=== PATIENT | male | born 1990 | race Caucasian/White ===

== ENCOUNTER 2025-06-23 18:42 | Emergency (ER) | payer BC, SELFPAY ==
[2025-06-23 18:48] VITALS: BP 147/98; PULSE 77; RESP 18; TEMP 36.7; O2SAT 95; BMI 36.6
--- NOTE | 2025-06-23 19:32 | XR_ITS ---
Examination: Cervical spine 4 views Technique: AP, lateral, swimmer's lateral, coned AP odontoid cervical spine 4 views Date and time: June 23, 2025 1944 hrs. Indications: Ground-level fall today with into the neck, neck pain. Findings: Adequate alignment cervical vertebral bodies. No cervical fracture. Intact odontoid Impression: No cervical fracture visualized.
--- NOTE | 2025-06-23 19:32 | PD.EDHEAD ---
ED Head Injury RME/HPI General Chief complaint: Head Injury Stated complaint: HEAD INJURY ON SATURDAY Time Seen by Provider: 06/23/25 18:53 Arrival date/time: 06/23/25 18:42 34-year-old male reports with complaints of neck pain and feeling dizzy for several days. Patient states 3 days ago a box fell onto his head but he was wearing a helmet he did not feel the impact in his head but he felt pain in his neck 2 days later. He denies any loss of consciousness dizziness blurry vision ringing in ear shortness of breath chest pain numbness tingling decreased range of motion or weakness in the limbs. Patient states that he has not taken any medications for pain Limitations: no limitations Related Data Previous Rx's ?Medication ?Instructions ?Recorded tramadol 50 mg tablet 50 mg PO BID PRN pain #15 tabs 06/23/25 Allergies Allergy/AdvReac Type Severity Reaction Status Date / Time Penicillins Allergy Rash Verified 06/23/25 18:50 Review of Systems Constitutional Constitutional: Denies headache(s) Eyes Eyes: Denies blind spots and Denies blurry vision ENT Ears, Nose, Mouth, and Throat: Denies dizziness, Denies otalgia, Denies epistaxis, Denies headache(s) and Reports neck pain Cardiovascular Cardiovascular: Denies chest pain, Denies dyspnea and Denies syncope Respiratory Respiratory: Denies dyspnea Gastrointestinal Gastrointestinal: Denies nausea and Denies vomiting Musculoskeletal Musculoskeletal: Reports neck pain and Denies stiffness Integumentary/Breasts Skin/Breast: Denies unusual bruising and Denies wounds Neurologic Neurologic: Denies behavioral changes, Denies confusion, Denies dizziness, Denies headache(s) and Denies syncope Psychiatric Psychiatric: Denies behavioral changes and Denies confusion ED Exam General Limitations: Present no limitations General appearance: Present alert and in no apparent distress Head Head exam: Present atraumatic Eye Eye exam: Present normal appearance, PERRL and EOMI ENT ENT exam: Present normal exam, normal oropharynx and mucous membranes moist Neck Neck exam: Present normal inspection, full ROM and trachea midline Chest Chest inspection: Present normal inspection and symmetric chest wall rise Respiratory Respiratory exam: Present normal lung sounds bilaterally Cardiovascular Cardiovascular exam: Present regular rate, normal rhythm and normal heart sounds Abdominal Exam Abdominal exam: Present soft and normal bowel sounds Extremities Exam Extremities exam: Present normal inspection and full ROM Back Exam Back exam: Present normal inspection and full ROM Neurological Exam Neurological exam: Present alert, oriented X3 and CN II-XII intact Psychiatric Psychiatric exam: Present normal affect and normal mood Skin Skin exam: Present warm, dry, intact and normal color Course Quality Measures none Orders Category Date Time Status XR cervical spine 2-3V Stat Exams 06/23/25 19:32 Taken Vital Signs Vital signs: Vital Signs Temperature 98.1 F 06/23/25 18:48 Pulse Rate 77 06/23/25 18:48 Respiratory Rate 18 06/23/25 18:48 Blood Pressure 147/98 H 06/23/25 18:48 Pulse Oximetry (%) 95 06/23/25 18:48 Oxygen Delivery Method Room Air 06/23/25 18:48 Head Injury Patient data External records reviewed:: None Clinical information provided by:: patient Social determinants that could affect healthcare access:: none Patient has the following chronic illnesses:: none How is presenting disease/condition affected by chronic disease/condition?: no chronic disease Evaluation data The following diagnostics were reviewed and interpreted by me:: radiology exam(s) Lab and/or radiology exams considered but not ordered:: none Interpretation Summary: negative Medications / Prescriptions Medications or Prescriptions considered but not ordered:: none Medication administrations:: none Consultations Consultation(s) initiated? (list below): No Diagnosis Differential diagnosis head injury: concussion without loss of consciousness, closed head injury and other (neck strain) Most likely diagnosis given after review of the tests above:: neck strain Admission Indicated Admission indicated?: not indicated Admission Request Was there a request for admission?: No Disposition Plan Disposition Plan: Discharge Discharge Attestation Discharge Attestation: The patient and all family members were given an opportunity to ask questions and understood the discharge instructions. Discharge instructions specifically effects, indications for sooner follow up or return to the emergency department, and the expected course of current diagnosis. Patient condition: Stable Discharge Plan Plan Patient Disposition: HOME (Self Care) Prescriptions/Referrals Prescriptions/Med Rec: New tramadol 50 mg tablet 50 mg PO BID PRN (Reason: pain) Qty: 15 0RF Referrals: No Primary/Family,Physician [Primary Care Provider] - In 1 week Problem List Clinical Impression: Acute cervical myofascial strain Patient/Caregiver Discharge Instructions Discharge Activity: activity as tolerated Education Materials: ED Neck Sprain or Strain Additional Instructions: Your x-ray shows a mild spasm in your neck which is most likely causing your pain get plenty of rest hydrate well take pain medicine as needed otherwise you may take medication such as Tylenol follow-up to primary care provider if no improvement in 3 days Print Language: Ethiopian Stand Alone Forms: Berenice Award Info., Patient Portal Info Letter
[2025-06-23 20:48] VITALS: RESP 16
== END 2025-06-23 20:48 | disposition home or self-care (01) ==
PROVIDERS: Emergency Provider Emergency Medicine
DX: S16.1XXA Strain of muscle, fascia and tendon at neck level, initial encounter (principal); W19.XXXA Unspecified fall, initial encounter
CPT/HCPCS: 72040; 99283